=== PATIENT | male | born 1935 | race Caucasian/White ===

== ENCOUNTER 2016-12-22 15:45 | Emergency (ER) | payer MEDICARE, OTHER ==
[2016-12-22] MEDS ORDERED: NS 0.9% 1000 ML* 1,000 ML IV ONE (16:07)
[2016-12-22] MEDS ORDERED: Ketorolac INJ* 30 MG/ML 1 ML VIAL IV ONE (16:07)
[2016-12-22 16:23] LABS: Hematocrit 45 % (42-52); Hemoglobin 15.2 g/dl (14.0-18.0); Mean Corpuscular HGB Conc 34 g/dl (31-36); Mean Corpuscular Hemoglobin 30 pg (27-31); Mean Corpuscular Volume 89 fL (80-94); Mean Platelet Volume 10 um3 (7.4-10.4); Red Blood Count 5.07 10^6/ul (4.0-5.4); Red Cell Distribution Width 13 % (10.5-15); White Blood Count 10.3 10^3/ul (3.5-10.8)
[2016-12-22 16:57] LABS: ALT 21 U/L (7-52); AST 24 U/L (13-39); Albumin 4.3 g/dL (3.2-5.2); Alkaline Phosphatase 71 U/L (34-104); Amylase 66 U/L (29-103); Anion Gap 7 mmol/L (2-11); BUN/Creatinine Ratio 21.8 (8-20); Blood Urea Nitrogen 27 mg/dL (6-24); C Reactive Protein < 1.00 mg/L (< 5.00); CO2 Carbon Dioxide 25 mmol/L (22-32); Calcium 9.8 mg/dL (8.6-10.3); Chloride 104 mmol/L (101-111); EGFR African American 72.3 (>60); EGFR Non-African American 56.2 (>60); Globulin 2.9 g/dL (2-4); Glucose 104 mg/dL (70-100); Lipase 25 U/L (11.0-82.0); Potassium 4.1 mmol/L (3.5-5.0); Sodium 136 mmol/L (133-145); Total Protein 7.2 g/dL (6.4-8.9)
--- NOTE | 2016-12-22 16:59 | RAD ---
CLINICAL HISTORY: Right flank pain COMPARISON: None TECHNIQUE: Multiple contiguous axial CT scans were obtained of the abdomen and pelvis, without intravenous contrast enhancement. Coronal and sagittal multiplanar reformations are submitted for review. Oral contrast was not administered. FINDINGS: The study is limited by the lack of intravenous contrast. This limits evaluation of the solid organs and vasculature. LUNG BASES: The lung bases are clear. LIVER: The liver is normal in shape, size, contour, and attenuation. BILE DUCTS: There is no intrahepatic or extrahepatic biliary dilatation. GALLBLADDER: The gallbladder is normal, without pericholecystic inflammatory change. PANCREAS: The pancreas is normal, without mass or ductal dilatation. SPLEEN: Normal in size and appearance. UPPER GI TRACT: Evaluation of the gastrointestinal tract is limited by incomplete gastric distention. The upper GI tract is unremarkable. SMALL BOWEL AND MESENTERY: The small bowel is normal in contour, course, and caliber. There is no obstruction or dilatation. COLON: The colon is normal in contour, course, caliber. There is no pericolonic inflammatory change. ADRENALS: Normal bilaterally. KIDNEYS: There is a 0.4 cm calculus of the distal right ureter at the right UVJ. There is mild pelviectasis and hydroureter. There is a simple renal cyst on the left measuring simple fluid in attenuation and 1.8 cm in diameter. BLADDER: The bladder is smooth in contour. PELVIC ORGANS: The prostate is diffusely enlarged. The seminal vesicles are symmetric. 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 ABDOMINAL WALL: There is a small fat-containing inguinal hernia on the left BONES AND SOFT TISSUES: Degenerative changes are noted of the spine. There is a dysraphic defect of S1 OTHER: None IMPRESSION: 0.4 CM CALCULUS OF THE DISTAL RIGHT URETER AT THE UVJ WITH MILD RIGHT-SIDED HYDRONEPHROSIS
[2016-12-22 17:36] LABS: Urine Bilirubin Negative (Negative); Urine Glucose Negative (Negative); Urine Nitrite Negative (Negative)
--- NOTE | 2016-12-22 17:53 | ED ---
Osbaldo Warren Erika, scribed for Jorge Cedeno MD on 12/22/16 at 1616 . GI/ HPI - HPI Summary HPI Summary: Patient is a 81-year-old male presenting to the ED with a CC of right flank pain. Patient reports that he first noticed the pain on 12/20/2016 - he states he woke up due to the pain that day. The pain resolved, and has returned today. Pain has been worsening throughout the day, and associated symptoms include nausea and vomiting. He denies radiation of the pain, including to the testicles. Currently, he rates the pain a 6/10. He also denies fever, chills, and hematuria. Pt denies Hx kidney stones. Hx HTN. PSHx prostate surgery. FHx diabetes. Pt does not smoke or drink. - History of Current Complaint Chief Complaint: EDFlankPain Time Seen by Provider: 12/22/16 15:53 Stated Complaint: RT SIDE ABD PAIN Hx Obtained From: Patient, Family/[employer] - Onset/Duration: Started Days Ago, Atraumatic, Worse Since - today Timing: Intermittent Severity: Moderate Pain Intensity: 7 Location of Pain: Flank - R Associated Signs and Symptoms: Positive: Nausea, Vomiting - Allergy/Home Medications Allergies/Adverse Reactions: Allergies Allergy/AdvReac Type Severity Reaction Status Date / Time No Known Allergies Allergy Verified 03/05/15 06:39 PMH/Surg Hx/FS Hx/Imm Hx Cardiovascular History: Reports: Hx Hypertension - WELL CONTROLLED History: Denies: Hx Kidney Stones Sensory History: Reports: Hx Cataracts - BILAT, Hx Contacts or Glasses - GLASSES Denies: Hx Hearing Aid Opthamlomology History: Reports: Hx Cataracts - BILAT, Hx Contacts or Glasses - GLASSES - Surgical History Surgery Procedure, Year, and Place: 2000 TURP [facility], prostate Hx Anesthesia Reactions: No Infectious Disease History: No Infectious Disease History: Denies: Traveled Outside the [place] in Last 30 Days - Family History Known Family History: Positive: Diabetes - Social History Lives: With Family Alcohol Use: None Hx Substance Use: No Substance Use Type: Reports: None Hx Tobacco Use: No Smoking Status (MU): Never Smoked Tobacco Review of Systems Negative: Fever, Chills Positive: Vomiting, Nausea Positive: flank pain - R. Negative: hematuria All Other Systems Reviewed And Are Negative: Yes Physical Exam - Summary Physical Exam Summary: VITAL SIGNS: Reviewed. GENERAL: Patient is a well developed and nourished male with acute deistress secondary to pain. Patient is not in any acute respiratory distress. HEAD AND FACE: Normocephalic and atraumatic. EYES: PERRLA, EOMI x 2, No injected conjunctiva. EARS: Hearing grossly intact. Ear canals and tympanic membranes are WNL. MOUTH: Oropharynx within normal limits. NECK: Supple, trachea is midline, no adenopathy, no JVD. CHEST: Symmetric, no tenderness at palpation LUNGS: Clear to auscultation bilaterally. No wheezing or crackles. CVS: RRR,, S1 and S2 present, no murmurs or gallops appreciated. ABDOMEN: Soft, non-tender. No signs of distention. Positive bowel sounds. No rebound no guarding, and no masses palpated. No abdominal bruit or pulsations. Positive right CVAT's. EXTREMITIES: FROM in all major joints, no edema, no cyanosis or clubbing. NEURO: Alert and oriented x 3. No acute neurological deficits. Speech is normal. SKIN: Dry and warm Triage Information Reviewed: Yes Vital Signs On Initial Exam: Initial Vitals Temp Pulse Resp BP Pulse Ox 98.7 F 69 16 163/70 100 12/22/16 15:46 12/22/16 15:46 12/22/16 15:46 12/22/16 15:46 12/22/16 15:46 Vital Signs Reviewed: Yes Diagnostics - Vital Signs Vital Signs Temp Pulse Resp BP Pulse Ox 12/22/16 15:46 98.7 F 69 16 163/70 100 - Laboratory Lab Results: Lab Results 12/22/16 12/22/16 12/22/16 Range/Units 16:10 16:10 17:26 WBC 10.3 (3.5-10.8) 10^3/ul RBC 5.07 (4.0-5.4) 10^6/ul Hgb 15.2 (14.0-18.0) g/dl Hct 45 (42-52) % MCV 89 (80-94) fL MCH 30 (27-31) pg MCHC 34 (31-36) g/dl RDW 13 (10.5-15) % Plt Count 168 (150-450) 10^3/ul MPV 10 (7.4-10.4) um3 Neut % (Auto) 76.1 (38-83) % Lymph % (Auto) 15.7 L (25-47) % [place] % (Auto) 7.0 (1-9) % Eos % (Auto) 0.6 (0-6) % Baso % (Auto) 0.6 (0-2) % Absolute Neuts (auto) 7.8 H (1.5-7.7) 10^3/ul Absolute Lymphs (auto) 1.6 (1.0-4.8) 10^3/ul Absolute Monos (auto) 0.7 (0-0.8) 10^3/ul Absolute Eos (auto) 0.1 (0-0.6) 10^3/ul Absolute Basos (auto) 0.1 (0-0.2) 10^3/ul Absolute Nucleated RBC 0 10^3/ul Nucleated RBC % 0 Sodium 136 (133-145) mmol/L Potassium 4.1 (3.5-5.0) mmol/L Chloride 104 (101-111) mmol/L Carbon Dioxide 25 (22-32) mmol/L Anion Gap 7 (2-11) mmol/L BUN 27 H (6-24) mg/dL Creatinine 1.24 H (0.67-1.17) mg/dL Est GFR ( Amer) 72.3 (>60) Est GFR (Non-Af Amer) 56.2 (>60) BUN/Creatinine Ratio 21.8 H (8-20) Glucose 104 H (70-100) mg/dL Calcium 9.8 (8.6-10.3) mg/dL Total Bilirubin 1.00 (0.2-1.0) mg/dL AST 24 (13-39) U/L ALT 21 (7-52) U/L Alkaline Phosphatase 71 (34-104) U/L C-Reactive Protein < 1.00 (< 5.00) mg/L Total Protein 7.2 (6.4-8.9) g/dL Albumin 4.3 (3.2-5.2) g/dL Globulin 2.9 (2-4) g/dL Albumin/Globulin Ratio 1.5 (1-3) Amylase 66 (29-103) U/L Lipase 25 (11.0-82.0) U/L Urine Color Yellow Urine Appearance Clear Urine pH 5.0 (5-9) Ur Specific [place] 1.018 (1.010-1.030) Urine Protein Negative (Negative) Urine Ketones Negative (Negative) Urine Blood Negative (Negative) Urine Nitrate Negative (Negative) Urine Bilirubin Negative (Negative) Urine Urobilinogen Negative (Negative) Ur Leukocyte Esterase Negative (Negative) Urine Glucose Negative (Negative) Result Diagrams: 12/22/16 16:10 12/22/16 16:10 Lab Statement: Any lab studies that have been ordered have been reviewed, and results considered in the medical decision making process. - CT CT A/P W/O CT Interpretation Completed By: Radiologist - IMPRESSION: 0.4 CM CALCULUS OF THE DISTAL RIGHT URETER AT THE UVJ WITH MILD RIGHT-SIDED HYDRONEPHROSIS GIGU Course/Dx - Course Assessment/Plan: Patient is a 81-year-old male presenting to the ED with a CC of right flank pain. Patient reports that he first noticed the pain on 2016 - he states he woke up due to the pain that day. The pain resolved, and has returned today. Pain has been worsening throughout the day, and associated symptoms include nausea and vomiting. He denies radiation of the pain, including to the testicles. Currently, he rates the pain a 6/10. He also denies fever, chills, and hematuria. Test results WNL except for an increased BUN and creatinine or 27/1.24 and a glucose of 104. UA is negative. CT Abd/Pelvis shows a 0.5 cm calculus in the distal and right ureter with mild right sided hydronephrosis. In the ED course, pt was given toradol and IV fluids, and the symptoms resolved. At this point the pt is asymptomatic with no pain. He will be discharged with follow up from his PCP and Dr. Helm who is the urologist for this patient. He was asked to return to the ED if he develops more pain that is not controlled by pain medication, fevers, chills, or hematuria. Patient is A&Ox3 and hemodynamically stable. I discussed all the findings and test results with the patient. Patient was instructed to return to the emergency room immediately if any of the symptoms return or worsens. Plan of care was discussed with the patient and understands and agrees. All questions were answered at patient satisfaction. There were no further complaints or concerns. P/E: Lungs: CTA B/L. Good air exchange. No wheezing or crackles heard. CVS: S1 and S2 present. No murmurs appreciated. Patient is alert and oriented x 3. Patient is hemodynamically stable. Patient will be discharged home with follow up PMD in the next 2-3 days - Diagnoses Differential Diagnoses - Male: Constipation, Diverticulitis, Renal Calculi, Renal Colic Provider Diagnoses: Ureteral calculus, Kidney stone Discharge - Discharge Plan Condition: Stable Disposition: HOME Prescriptions: oxyCODONE/Acetamin 5/325 MG* [Percocet 5/325 TAB*] 1 tab PO Q4H PRN #15 tab MDD max 6 tabs / day PRN Reason: Pain Patient Education Materials: Kidney Stones (ED) Referrals: Tyson Ruelas MD [Primary Care Provider] - The documentation as recorded by the Osbaldo harvey Erika accurately reflects the service I personally performed and the decisions made by Wilian sousa Walter, MD.
[2016-12-22 17:56] VITALS: BP 143/67
== END 2016-12-22 17:55 | disposition home or self-care (01) ==
LOC: ED 15:45
DX: N13.2 Hydronephrosis with renal and ureteral calculous obstruction (principal); I10 Essential (primary) hypertension
CPT/HCPCS: 36415; 74176; 80053; 81003; 82150; 83690; 85025; 86140; 96360; 96374; 99283; J1885